=== PATIENT | male | born 1965 | race African-American/Black ===

== ENCOUNTER 2017-03-12 14:26 | Emergency (ER) | payer MEDICARE, OTHER ==
[~2017-03-12] VITALS: Ht 167.6 cm; Wt 89.8 kg
[~2017-03-12 14:26] MED LIST: ASPIR 8181 MG PO; COZAAR25 MG PO; GABAPENTIN300 MG PO; GLUCOPHAGE500 MG PO; OMEPRAZOLE20 M2 PO; SIMVASTATIN20 MG PO; SOMA350 MG PO; VICODIN 5-5001 EACH PO
[2017-03-12 14:30] VITALS: BP 119/66
[2017-03-12] MEDS ORDERED: CRESTOR10 M2 ORAL (14:33)
[2017-03-12] MEDS ORDERED: ISOSORBIDE MONO60 M1 PO (14:33)
[2017-03-12] MEDS ORDERED: CARVEDILOL25 MG ORAL (14:33)
[2017-03-12] MEDS ORDERED: RAMIPRIL5 MG ORAL (14:33)
[2017-03-12] MEDS ORDERED: VITAMIN D22000 UNIT PO (14:33)
[2017-03-12] MEDS ORDERED: TERBINAFINE HC250 MG PO (14:33)
[2017-03-12] MEDS ORDERED: EC-NAPROSYN500 MG PO (14:33)
[2017-03-12] MEDS ORDERED: PLAVIX75 MG ORAL (14:33)
[2017-03-12] MEDS ORDERED: Ketorolac 30mg Inj IV ONE (14:45)
[2017-03-12 15:16] LABS: BASOPHILS % (AUTO) 1.8 % (0.0-2.0); EOSINOPHILS % (AUTO) 2.7 % (0.0-3.0); HEMATOCRIT 42.6 % (42.0-52.0); HEMOGLOBIN 13.4 G/DL (14.2-18.0); LYMPHOCYTES % (AUTO) 16.7 % (20.0-45.0); MEAN CORPUSCULAR VOLUME 87 FL (80-99); MONOCYTES % (AUTO) 12.2 % (1.0-10.0); NEUTROPHILS % (AUTO) 66.7 % (45.0-75.0); PLATELET COUNT 396 K/UL (150-450); RED CELL DISTRIBUTION WIDTH 13.4 % (11.6-14.8); WHITE BLOOD COUNT 6.5 K/UL (4.8-10.8)
[2017-03-12 15:25] LABS: ANION GAP 6 mmol/L (5-15); BLOOD UREA NITROGEN 12 mg/dL (7-18); CALCIUM 9.4 MG/DL (8.5-10.1); CARBON DIOXIDE 31 MMOL/L (21-32); CHLORIDE 97 MMOL/L (98-107); CREATININE 1.2 MG/DL (0.55-1.30); POTASSIUM 4.1 MMOL/L (3.5-5.1); SODIUM 134 MMOL/L (136-145)
[2017-03-12 15:38] LABS: ALANINE AMINOTRANSFERASE 324 U/L (12-78); ALBUMIN/GLOBULIN RATIO 0.6 (1.0-2.7); ALKALINE PHOSPHATASE 703 U/L (46-116); ASPARTATE AMINO TRANSFERASE 109 U/L (15-37); BILIRUBIN,TOTAL 0.9 MG/DL (0.2-1.0); CKMB 1.7 NG/ML (0.0-3.6); CREATINE KINASE 103 U/L (26-308)
[2017-03-12 16:13] VITALS: BP 105/60
--- NOTE | 2017-03-12 16:16 | Emergency Room Report ---
History of Present Illness General Chief Complaint: Abdominal Pain Source: Patient, Medical Record Present Illness HPI 52-year-old male presents ED for evaluation. Patient comes from transitional housing complaining of pain. Notes having pain to his lower ribs, arms and legs. States that this is happening before when his potassium is low. Denies chest pain or shortness of breath. Pain is crampy, 8/10, nonradiating. Denies any drug use. Denies any fevers or chills. Denies cough. No other aggravating relieving factors denies any other associated symptoms Allergies: Coded Allergies: No Known Allergies (Unverified , 03/27/12) Patient History Past Medical History: DM, HTN Past Surgical History: none Pertinent Family History: none Social History: Denies: smoking, alcohol use, drug use Immunizations: UTD Reviewed Nursing Documentation: PMH: Agreed, PSxH: Agreed Nursing Documentation-PMH Hx Hypertension: Yes Hx Pacemaker: Yes Hx Diabetes: Yes Review of Systems All Other Systems: negative except mentioned in HPI Physical Exam Vital Signs Date Time Temp Pulse Resp B/P (MAP) Pulse Ox O2 Delivery O2 Flow Rate FiO2 03/12/17 14:13 98.2 80 19 124/80 98 Room Air Sp02 EP Interpretation: reviewed, normal General Appearance: no apparent distress, alert, GCS 15, non-toxic Head: normocephalic Eyes: bilateral eye normal inspection, bilateral eye PERRL ENT: normal ENT inspection Neck: normal inspection Respiratory: lungs clear, normal breath sounds, speaking full sentences, other - reproducible lower rib pain Cardiovascular #1: regular rate, rhythm, no edema Gastrointestinal: normal bowel sounds, non tender, soft, non-distended, no guarding, no rebound Rectal: deferred Genitourinary: no CVA tenderness Musculoskeletal: normal inspection Neurologic: alert, oriented x3, responsive, motor strength/tone normal, sensory intact, speech normal Psychiatric: judgement/insight normal, memory normal, mood/affect normal, no suicidal/homicidal ideation Skin: normal inspection Lymphatic: normal inspection Medical Decision Making Diagnostic Impression: Primary Impression: Muscle cramps ER Course Hospital Course 52-year-old male presents ED complaining of lower rib cramping sensation, cramping pain in the arms and legs. Differential diagnoses include: dehydration, rhabdo, ACS/NC Clinical course Patient placed on stretcher. After initial history and physical I ordered labs , EKG, chest x-ray, IVFs, toradol labs reviewed- all electrolytes normal, troponins negative, no leukocytosis, hemoglobin/hematocrit stable, potassium and magnesium ok EKG - NSR, no acute ischemic changes interpreted by me Chest x-ray-no cardiomegaly, no rib fracture, no pneumothorax, no acute process , AICD in place On reassessment patient feels better wishes to be discharged. Given cardiac history I believe that workup is necessary. Patient states this feels typical of his cramping pain. However i recommend close followup with PMD. I. I feel this is a highly complex case requiring extensive working including EKG/Rhythm strip, Xray/CT/US, Blood/urine lab work, repeat exams while in ED, and administration of strong opiates/narcotics for pain control, admission to hospital or close patient follow up. Diagnosis - muscle cramps Stable and discharged to home with Rx Naprosyn. Instructed to followup with PMD. Return to ED if symptoms recur or worsen Labs Test 03/12/17 14:49 White Blood Count 6.5 K/UL (4.8-10.8) Red Blood Count 4.90 M/UL (4.70-6.10) Hemoglobin 13.4 G/DL (14.2-18.0) Hematocrit 42.6 % (42.0-52.0) Mean Corpuscular Volume 87 FL (80-99) Mean Corpuscular Hemoglobin 27.3 PG (27.0-31.0) Mean Corpuscular Hemoglobin Concent 31.4 G/DL (32.0-36.0) Red Cell Distribution Width 13.4 % (11.6-14.8) Platelet Count 396 K/UL (150-450) Mean Platelet Volume 7.0 FL (6.5-10.1) Neutrophils (%) (Auto) 66.7 % (45.0-75.0) Lymphocytes (%) (Auto) 16.7 % (20.0-45.0) Monocytes (%) (Auto) 12.2 % (1.0-10.0) Eosinophils (%) (Auto) 2.7 % (0.0-3.0) Basophils (%) (Auto) 1.8 % (0.0-2.0) Sodium Level 134 MMOL/L (136-145) Potassium Level 4.1 MMOL/L (3.5-5.1) Chloride Level 97 MMOL/L (98-107) Carbon Dioxide Level 31 MMOL/L (21-32) Anion Gap 6 mmol/L (5-15) Blood Urea Nitrogen 12 mg/dL (7-18) Creatinine 1.2 MG/DL (0.55-1.30) Estimat Glomerular Filtration Rate > 60 mL/min (>60) Glucose Level 179 MG/DL (74-106) Calcium Level 9.4 MG/DL (8.5-10.1) Magnesium Level 1.8 MG/DL (1.8-2.4) Total Bilirubin 0.9 MG/DL (0.2-1.0) Aspartate Amino Transf (AST/SGOT) 109 U/L (15-37) Alanine Aminotransferase (ALT/SGPT) 324 U/L (12-78) Alkaline Phosphatase 703 U/L (46-116) Total Creatine Kinase 103 U/L (26-308) Creatine Kinase MB 1.7 NG/ML (0.0-3.6) Creatine Kinase MB Relative Index 1.6 Troponin I 0.009 ng/mL (0.000-0.056) Total Protein 8.4 G/DL (6.4-8.2) Albumin 3.0 G/DL (3.4-5.0) Globulin 5.4 g/dL Albumin/Globulin Ratio 0.6 (1.0-2.7) EKG Diagnostic Results Rate: normal Rhythm: NSR ST Segments: no acute changes ASA given to the pt in ED: No Rhythm Strip Diag. Results EP Interpretation: yes Rhythm: NSR, no PVC's, no ectopy Chest X-Ray Diagnostic Results Chest X-Ray Diagnostic Results : Chest X-Ray Ordered: Yes # of Views/Limited/Complete: 1 View Indication: Other - pain Interpretation: no consolidation, no effusion, no pneumothorax, no acute cardiopulmonary disease, other - AICD Impression: No acute disease Electronically Signed by: Electronically signed by Martín Gómez MD Last Vital Signs Date Time Temp Pulse Resp B/P (MAP) Pulse Ox O2 Delivery O2 Flow Rate FiO2 03/12/17 14:30 90 8 119/66 99 Room Air 03/12/17 14:13 98.2 Status: improved Disposition: HOME, SELF-CARE Condition: Stable Scripts Naproxen* (NAPROSYN*) 500 Mg Tablet 500 MG ORAL TWICE A DAY, #30 TAB Prov: MARTÍN GÓMEZ M.D. 03/12/17 Referrals: NON PHYSICIAN (PCP) MARTÍN GÓMEZ M.D. Mar 12, 2017 16:16
--- NOTE | 2017-03-12 16:17 | Diagnostic Imaging Report ---
Indication: Chest pain Technique: One view of the chest Comparison: none Findings: Lungs and pleural spaces are clear. Heart size is normal. There is a left chest unifocal AICD Impression: No acute process
[2017-03-12] MEDS ORDERED: NAPROSYN500 M1 ORAL (16:32)
[2017-03-12 16:52] VITALS: BP 113/55
--- NOTE | 2017-03-20 18:36 | Cardiology Report ---
APPROVED REPORT EKG Measurement Heart [id number] Normal sinus rhythm Possible Left atrial enlargement Left ventricular hypertrophy Lateral infarct, age undetermined Inferior infarct, age undetermined Abnormal ECG
== END 2017-03-12 16:53 | disposition home or self-care (01) ==
LOC: EDBD 14:26 → EMR 15:44
DX: R25.2 Cramp and spasm (principal); E11.9 Type 2 diabetes mellitus without complications; I10 Essential (primary) hypertension; Z95.0 Presence of cardiac pacemaker
CPT/HCPCS: 36415; 71045; 80053; 82550; 82553; 83735; 84484; 85025; 93005; 96361; 96374; 99284; J1885